=== PATIENT | male | born 1970 | race Two or more races ===

== ENCOUNTER 2021-08-25 01:07 | Emergency (ER) | payer OTHER ==
[~2021-08-25] VITALS: Ht 167.6 cm; Wt 77.1 kg
[2021-08-25] MEDS ORDERED: guaiFENesin-CODEINE Liq 5 ML UD PO ONE (01:45)
[2021-08-25 05:37] VITALS: BP 146/83
== END 2021-08-25 06:02 | disposition home or self-care (01) ==
LOC: ER 01:11
DX: J06.9 Acute upper respiratory infection, unspecified (principal); I10 Essential (primary) hypertension; Z20.822 Contact with and (suspected) exposure to COVID-19
CPT/HCPCS: 36415; 71045; 87426